=== PATIENT | male | born 1950 | race African-American/Black ===

== ENCOUNTER 2019-03-29 15:54 | Inpatient (IN) | payer MEDICARE ==
[~2019-03-29] VITALS: Ht 182.9 cm; Wt 71.0 kg
[2019-03-29 19:10] VITALS: BP 124/72
[2019-03-29] MEDS: DOCUSATE SODIUM 100 MG CAPSULE PO SCH (21:00)
[2019-03-29] MEDS ORDERED: QUEtiapine FUMARATE 25 MG TABLET PO SCH (21:00)
[2019-03-29] MEDS: SENNA 187 MG TABLET PO SCH (21:00)
[2019-03-29] MEDS: ATORVASTATIN CALCIUM 40 MG TABLET PO SCH (21:01)
[2019-03-29] MEDS: MONTELUKAST SODIUM 10 MG TABLET PO SCH (21:26)
[2019-03-29] MEDS: PARoxetine HCL 20 MG TABLET PO SCH (21:26)
[2019-03-29 23:17] VITALS: BP 132/57
[2019-03-30] MEDS ORDERED: DIPH25 PO (02:23)
[2019-03-30] MEDS ORDERED: TRAZ-257 PO (02:23)
[2019-03-30] MEDS ORDERED: PARO20TA24 PO (02:23)
[2019-03-30 06:34] LABS: BASOPHILS % (AUTO) 0.7 % (0.0-2.0); EOSINOPHILS % (AUTO) 5.6 % (1.0-6.0); HEMATOCRIT 47.5 % (41-53); HEMOGLOBIN 15.8 g/dL (13.5-17.5); LYMPHOCYTES # (AUTO) 1.2 K/uL (1.0-4.8); LYMPHOCYTES % (AUTO) 23.1 % (22.0-44.0); MEAN CORPUSCULAR HEMOGLOBIN 29.1 pg (26.0-34.0); MEAN CORPUSCULAR HGB CONC 33.4 G/dL (31.0-37.0); MEAN CORPUSCULAR VOLUME 87 fL (80-100); MONOCYTES # (AUTO) 0.5 K/uL (0.1-1.0); MONOCYTES % (AUTO) 9.2 % (2.0-9.0); NEUTROPHILS # (AUTO) 3.3 K/uL (1.8-7.7); NEUTROPHILS % (AUTO) 61.4 % (40.0-70.0); PLATELET COUNT (AUTO) 282 K/uL (150-450); RED BLOOD CELL COUNT(AUTO) 5.44 MIL/uL (4.50-5.90)
[2019-03-30 06:50] LABS: ALANINE AMINOTRANSFERASE 42 U/L (12-78); ALBUMIN 3.7 g/dL (3.4-5.0); ALKALINE PHOSPHATASE 56 U/L (46-116); ANION GAP 10 mmol/L (8-16); ASPARTATE AMINOTRANSFERASE 18 U/L (15-37); BILIRUBIN,TOTAL 0.5 mg/dL (0.1-1.0); CALCIUM, TOTAL 9.3 mg/dL (8.8-10.5); CARBON DIOXIDE 25 mmol/L (22-29); CHLORIDE 103 mmol/L (98-107); CREATININE 0.96 mg/dL (0.60-1.30); GLOMERULAR FILTR. RATE CALC > 60 mL/min (>60); GLUCOSE,RANDOM 102 mg/dL (70-110); SODIUM SERUM 138 mmol/L (136-145); TOTAL PROTEIN, SERUM 7.2 g/dL (6.4-8.2); UREA NITROGEN, BLOOD 19 mg/dL (7-18)
[2019-03-30 07:19] VITALS: BP 125/73
[2019-03-30] MEDS: AmLODIPine BESYLATE 10 MG TABLET PO SCH (08:09)
[2019-03-30] MEDS: LISINOPRIL 10 MG TABLET PO SCH (08:09)
[2019-03-30] MEDS: DOCUSATE SODIUM 100 MG CAPSULE PO SCH ×2 (08:09→20:04)
[2019-03-30] MEDS: CLOPIDOGREL BISULFATE 75 MG TABLET PO SCH (08:09)
[2019-03-30 16:04] VITALS: BP 116/68
[2019-03-30] MEDS: QUEtiapine FUMARATE 25 MG TABLET PO SCH (20:04)
[2019-03-30] MEDS: SENNA 187 MG TABLET PO SCH (20:04)
[2019-03-30] MEDS: ATORVASTATIN CALCIUM 40 MG TABLET PO SCH (20:04)
[2019-03-30] MEDS: MONTELUKAST SODIUM 10 MG TABLET PO SCH (20:04)
[2019-03-30] MEDS: PARoxetine HCL 20 MG TABLET PO SCH (20:04)
[2019-03-30] MEDS ORDERED: TraZODone HCL 100 MG TABLET PO SCH (21:00)
[2019-03-31 05:00] VITALS: BP 130/78
[2019-03-31] MEDS: PANTOPRAZOLE SODIUM 40 MG DR TABLET PO SCH (06:17)
[2019-03-31 07:15] VITALS: BP 113/65
[2019-03-31] MEDS: DOCUSATE SODIUM 100 MG CAPSULE PO SCH ×2 (09:07→20:00)
[2019-03-31] MEDS: CLOPIDOGREL BISULFATE 75 MG TABLET PO SCH (09:07)
[2019-03-31] MEDS: AmLODIPine BESYLATE 10 MG TABLET PO SCH (09:08)
[2019-03-31] MEDS: LISINOPRIL 10 MG TABLET PO SCH (09:08)
[2019-03-31 15:24] VITALS: BP 139/67
[2019-03-31] MEDS: TraMADol HCL 50 MG TABLET PO PRN (18:19)
[2019-03-31] MEDS: PARoxetine HCL 20 MG TABLET PO SCH (20:00)
[2019-03-31] MEDS: ATORVASTATIN CALCIUM 40 MG TABLET PO SCH (20:00)
[2019-03-31] MEDS: SENNA 187 MG TABLET PO SCH ×2 (20:01→20:20)
[2019-03-31] MEDS: MONTELUKAST SODIUM 10 MG TABLET PO SCH (20:01)
[2019-03-31] MEDS: QUEtiapine FUMARATE 25 MG TABLET PO SCH (20:01)
[2019-03-31] MEDS: DiphenhydrAMINE HCL 25 MG CAPSULE PO PRN (20:07)
[2019-03-31 23:23] VITALS: BP 137/68
[2019-04-01] MEDS: PANTOPRAZOLE SODIUM 40 MG DR TABLET PO SCH (06:22)
[2019-04-01 07:30] VITALS: BP 127/64
[2019-04-01] MEDS: AmLODIPine BESYLATE 10 MG TABLET PO SCH (08:43)
[2019-04-01] MEDS: DOCUSATE SODIUM 100 MG CAPSULE PO SCH ×2 (08:43→20:54)
[2019-04-01] MEDS: LISINOPRIL 10 MG TABLET PO SCH (08:44)
[2019-04-01] MEDS: CLOPIDOGREL BISULFATE 75 MG TABLET PO SCH (08:44)
[2019-04-01 15:30] VITALS: BP 124/67
[2019-04-01] MEDS: TraMADol HCL 50 MG TABLET PO PRN ×2 (15:30→22:17)
[2019-04-01] MEDS: PARoxetine HCL 20 MG TABLET PO SCH (20:54)
[2019-04-01] MEDS: SENNA 187 MG TABLET PO SCH (20:54)
[2019-04-01] MEDS: ATORVASTATIN CALCIUM 40 MG TABLET PO SCH (20:54)
[2019-04-01] MEDS: QUEtiapine FUMARATE 25 MG TABLET PO SCH (20:54)
[2019-04-01] MEDS: MONTELUKAST SODIUM 10 MG TABLET PO SCH (20:54)
[2019-04-01] MEDS: DiphenhydrAMINE HCL 25 MG CAPSULE PO PRN (21:09)
[2019-04-01] MEDS: DICLOFENAC SODIUM 1% 100 GM GEL [4GM] TP SCH (21:09)
[2019-04-01 23:17] VITALS: BP 134/89
[2019-04-02] MEDS: PANTOPRAZOLE SODIUM 40 MG DR TABLET PO SCH (05:28)
[2019-04-02] MEDS: TraMADol HCL 50 MG TABLET PO PRN ×3 (05:29→21:33)
[2019-04-02 07:15] VITALS: BP 131/63
[2019-04-02] MEDS: DICLOFENAC SODIUM 1% 100 GM GEL [4GM] TP SCH ×3 (08:54→20:46)
[2019-04-02] MEDS: DOCUSATE SODIUM 100 MG CAPSULE PO SCH ×2 (09:21→20:43)
[2019-04-02] MEDS: CLOPIDOGREL BISULFATE 75 MG TABLET PO SCH (09:21)
[2019-04-02] MEDS: AmLODIPine BESYLATE 10 MG TABLET PO SCH (09:21)
[2019-04-02] MEDS: LISINOPRIL 10 MG TABLET PO SCH (09:21)
[2019-04-02] MEDS: ENOXAPARIN SODIUM 40 MG/0.4 ML PF SYRINGE SQ SCH (11:50)
[2019-04-02 16:11] VITALS: BP 140/71
[2019-04-02] MEDS: GABAPENTIN 100 MG CAPSULE PO SCH ×2 (17:31→20:44)
[2019-04-02] MEDS: PARoxetine HCL 20 MG TABLET PO SCH (20:43)
[2019-04-02] MEDS: ATORVASTATIN CALCIUM 40 MG TABLET PO SCH (20:43)
[2019-04-02] MEDS: SENNA 187 MG TABLET PO SCH (20:43)
[2019-04-02] MEDS: MONTELUKAST SODIUM 10 MG TABLET PO SCH (20:44)
[2019-04-02] MEDS: QUEtiapine FUMARATE 25 MG TABLET PO SCH (20:44)
[2019-04-02] MEDS: DiphenhydrAMINE HCL 25 MG CAPSULE PO PRN (21:32)
[2019-04-03] VITALS: BP 140/79
[2019-04-03] MEDS: PANTOPRAZOLE SODIUM 40 MG DR TABLET PO SCH (06:33)
[2019-04-03 07:17] VITALS: BP 150/85
[2019-04-03] MEDS: DOCUSATE SODIUM 100 MG CAPSULE PO SCH (08:58)
[2019-04-03] MEDS: AmLODIPine BESYLATE 10 MG TABLET PO SCH (08:58)
[2019-04-03] MEDS: LISINOPRIL 10 MG TABLET PO SCH (08:58)
[2019-04-03] MEDS: DICLOFENAC SODIUM 1% 100 GM GEL [4GM] TP SCH ×3 (08:59→21:58)
[2019-04-03] MEDS: GABAPENTIN 100 MG CAPSULE PO SCH ×3 (08:59→21:57)
[2019-04-03] MEDS: CLOPIDOGREL BISULFATE 75 MG TABLET PO SCH (08:59)
[2019-04-03] MEDS: ENOXAPARIN SODIUM 40 MG/0.4 ML PF SYRINGE SQ SCH (08:59)
[2019-04-03 10:15] VITALS: BP 141/76
[2019-04-03 15:46] VITALS: BP 153/90
[2019-04-03] MEDS: TraMADol HCL 50 MG TABLET PO PRN (15:46)
[2019-04-03] MEDS: MONTELUKAST SODIUM 10 MG TABLET PO SCH (21:57)
[2019-04-03] MEDS: PARoxetine HCL 20 MG TABLET PO SCH (21:57)
[2019-04-03] MEDS: QUEtiapine FUMARATE 25 MG TABLET PO SCH (21:58)
[2019-04-03] MEDS: DOCUSATE SODIUM 250 MG CAPSULE PO SCH (21:58)
[2019-04-03] MEDS: ATORVASTATIN CALCIUM 40 MG TABLET PO SCH (21:58)
[2019-04-03] MEDS: SENNA 187 MG TABLET PO SCH (21:58)
[2019-04-03] MEDS: DiphenhydrAMINE HCL 25 MG CAPSULE PO PRN (22:05)
[2019-04-04 05:55] VITALS: BP 139/78
[2019-04-04] MEDS: PANTOPRAZOLE SODIUM 40 MG DR TABLET PO SCH ×2 (06:03→20:33)
[2019-04-04] MEDS: GABAPENTIN 100 MG CAPSULE PO SCH ×3 (09:00→20:33)
[2019-04-04 09:13] VITALS: BP 136/84
[2019-04-04] MEDS: ENOXAPARIN SODIUM 40 MG/0.4 ML PF SYRINGE SQ SCH (10:32)
[2019-04-04] MEDS: DICLOFENAC SODIUM 1% 100 GM GEL [4GM] TP SCH ×3 (10:32→20:33)
[2019-04-04] MEDS: DOCUSATE SODIUM 250 MG CAPSULE PO SCH ×2 (10:33→20:33)
[2019-04-04] MEDS: LISINOPRIL 10 MG TABLET PO SCH (10:33)
[2019-04-04] MEDS: AmLODIPine BESYLATE 10 MG TABLET PO SCH (10:33)
[2019-04-04] MEDS: CLOPIDOGREL BISULFATE 75 MG TABLET PO SCH (10:33)
[2019-04-04] MEDS: MAGNESIUM HYDROXIDE SUSPENSION 30 ML UDCUP PO PRN (12:05)
[2019-04-04 16:00] VITALS: BP 134/65
[2019-04-04] MEDS: TraMADol HCL 50 MG TABLET PO PRN (19:11)
[2019-04-04] MEDS: DiphenhydrAMINE HCL 25 MG CAPSULE PO PRN (20:32)
[2019-04-04] MEDS: SENNA 187 MG TABLET PO SCH (20:32)
[2019-04-04] MEDS: ATORVASTATIN CALCIUM 40 MG TABLET PO SCH (20:33)
[2019-04-04] MEDS: QUEtiapine FUMARATE 25 MG TABLET PO SCH (20:33)
[2019-04-04] MEDS: MONTELUKAST SODIUM 10 MG TABLET PO SCH (20:33)
[2019-04-04] MEDS: PARoxetine HCL 20 MG TABLET PO SCH (20:33)
[2019-04-04 23:28] VITALS: BP 138/72
[2019-04-05] MEDS ORDERED: SENN8.6T90 PO (04:50)
[2019-04-05] MEDS ORDERED: CLOP75TA3 PO (04:50)
[2019-04-05] MEDS ORDERED: LISI-661 PO (04:50)
[2019-04-05] MEDS ORDERED: PANT40TA25 PO (04:50)
[2019-04-05] MEDS ORDERED: DOCU-342 PO (04:50)
[2019-04-05] MEDS ORDERED: AMLO10TA7 PO (04:50)
[2019-04-05] MEDS ORDERED: ATOR40TA28 PO (04:50)
[2019-04-05] MEDS ORDERED: QUET25TA PO (04:50)
[2019-04-05] MEDS ORDERED: MONT10TA21 PO (04:50)
[2019-04-05] MEDS ORDERED: GABA-529 PO (04:50)
[2019-04-05] MEDS ORDERED: DICL2100G TP (04:50)
[2019-04-05] MEDS: PANTOPRAZOLE SODIUM 40 MG DR TABLET PO SCH (06:37)
[2019-04-05 08:50] VITALS: BP 136/85
[2019-04-05] MEDS: ENOXAPARIN SODIUM 40 MG/0.4 ML PF SYRINGE SQ SCH (08:53)
[2019-04-05] MEDS: CLOPIDOGREL BISULFATE 75 MG TABLET PO SCH (08:54)
[2019-04-05] MEDS: DICLOFENAC SODIUM 1% 100 GM GEL [4GM] TP SCH ×3 (08:54→20:22)
[2019-04-05] MEDS: DOCUSATE SODIUM 250 MG CAPSULE PO SCH ×2 (08:54→20:18)
[2019-04-05] MEDS: AmLODIPine BESYLATE 10 MG TABLET PO SCH (08:54)
[2019-04-05] MEDS: GABAPENTIN 100 MG CAPSULE PO SCH ×3 (08:54→20:17)
[2019-04-05] MEDS: LISINOPRIL 10 MG TABLET PO SCH (08:54)
[2019-04-05] MEDS: TraMADol HCL 50 MG TABLET PO PRN (09:46)
[2019-04-05] MEDS: MAGNESIUM HYDROXIDE SUSPENSION 30 ML UDCUP PO PRN (09:47)
[2019-04-05] MEDS: ACETAMINOPHEN 325 MG TABLET PO PRN (14:35)
[2019-04-05 15:30] VITALS: BP 149/84
[2019-04-05] MEDS: ATORVASTATIN CALCIUM 40 MG TABLET PO SCH (20:17)
[2019-04-05] MEDS: DiphenhydrAMINE HCL 25 MG CAPSULE PO PRN (20:17)
[2019-04-05] MEDS: PARoxetine HCL 20 MG TABLET PO SCH (20:17)
[2019-04-05] MEDS: MONTELUKAST SODIUM 10 MG TABLET PO SCH (20:17)
[2019-04-05] MEDS: QUEtiapine FUMARATE 25 MG TABLET PO SCH (20:17)
[2019-04-05] MEDS: SENNA 187 MG TABLET PO SCH (20:18)
[2019-04-05 23:36] VITALS: BP 141/63
[2019-04-06] MEDS: MAGNESIUM HYDROXIDE SUSPENSION 30 ML UDCUP PO PRN ×2 (06:20→08:59)
[2019-04-06] MEDS: PANTOPRAZOLE SODIUM 40 MG DR TABLET PO SCH (06:20)
[2019-04-06 08:30] VITALS: BP 114/61
[2019-04-06] MEDS: ENOXAPARIN SODIUM 40 MG/0.4 ML PF SYRINGE SQ SCH (08:57)
[2019-04-06] MEDS: DOCUSATE SODIUM 250 MG CAPSULE PO SCH ×2 (08:57→20:43)
[2019-04-06] MEDS: AmLODIPine BESYLATE 10 MG TABLET PO SCH (08:57)
[2019-04-06] MEDS: LISINOPRIL 10 MG TABLET PO SCH (08:57)
[2019-04-06] MEDS: CLOPIDOGREL BISULFATE 75 MG TABLET PO SCH (08:57)
[2019-04-06] MEDS: GABAPENTIN 100 MG CAPSULE PO SCH ×3 (08:57→20:42)
[2019-04-06] MEDS: DICLOFENAC SODIUM 1% 100 GM GEL [4GM] TP SCH ×3 (08:58→20:43)
[2019-04-06] MEDS: TraMADol HCL 50 MG TABLET PO PRN (09:29)
[2019-04-06] MEDS ORDERED: MAGNESIUM CITRATE 300 ML ORAL SOLUTION PO ONE (15:45)
[2019-04-06 15:56] VITALS: BP 134/97
[2019-04-06] MEDS: SENNA 187 MG TABLET PO SCH (20:42)
[2019-04-06] MEDS: DiphenhydrAMINE HCL 25 MG CAPSULE PO PRN (20:42)
[2019-04-06] MEDS: QUEtiapine FUMARATE 25 MG TABLET PO SCH (20:43)
[2019-04-06] MEDS: PARoxetine HCL 20 MG TABLET PO SCH (20:43)
[2019-04-06] MEDS: MONTELUKAST SODIUM 10 MG TABLET PO SCH (20:43)
[2019-04-06] MEDS: ATORVASTATIN CALCIUM 40 MG TABLET PO SCH (20:43)
[2019-04-06 23:25] VITALS: BP 113/58
[2019-04-07] MEDS: PANTOPRAZOLE SODIUM 40 MG DR TABLET PO SCH (06:28)
[2019-04-07 08:55] VITALS: BP 115/68
[2019-04-07] MEDS: DICLOFENAC SODIUM 1% 100 GM GEL [4GM] TP SCH ×3 (09:00→20:09)
[2019-04-07] MEDS: GABAPENTIN 100 MG CAPSULE PO SCH ×3 (09:23→20:08)
[2019-04-07] MEDS: AmLODIPine BESYLATE 10 MG TABLET PO SCH (09:23)
[2019-04-07] MEDS: LISINOPRIL 10 MG TABLET PO SCH (09:23)
[2019-04-07] MEDS: DOCUSATE SODIUM 250 MG CAPSULE PO SCH ×2 (09:23→20:08)
[2019-04-07] MEDS: CLOPIDOGREL BISULFATE 75 MG TABLET PO SCH (09:23)
[2019-04-07] MEDS: ENOXAPARIN SODIUM 40 MG/0.4 ML PF SYRINGE SQ SCH (09:23)
[2019-04-07 15:00] VITALS: BP 130/95
[2019-04-07] MEDS: TraMADol HCL 50 MG TABLET PO PRN (20:06)
[2019-04-07] MEDS: MONTELUKAST SODIUM 10 MG TABLET PO SCH (20:07)
[2019-04-07] MEDS: QUEtiapine FUMARATE 25 MG TABLET PO SCH (20:07)
[2019-04-07] MEDS: DiphenhydrAMINE HCL 25 MG CAPSULE PO PRN (20:07)
[2019-04-07] MEDS: SENNA 187 MG TABLET PO SCH (20:08)
[2019-04-07] MEDS: PARoxetine HCL 20 MG TABLET PO SCH (20:08)
[2019-04-07] MEDS: ATORVASTATIN CALCIUM 40 MG TABLET PO SCH (20:08)
[2019-04-07 23:00] VITALS: BP 116/61
[2019-04-08] MEDS: PANTOPRAZOLE SODIUM 40 MG DR TABLET PO SCH (06:17)
[2019-04-08 07:55] VITALS: BP 134/76
[2019-04-08] MEDS: DICLOFENAC SODIUM 1% 100 GM GEL [4GM] TP SCH ×3 (09:26→19:56)
[2019-04-08] MEDS: ENOXAPARIN SODIUM 40 MG/0.4 ML PF SYRINGE SQ SCH (09:26)
[2019-04-08] MEDS: AmLODIPine BESYLATE 10 MG TABLET PO SCH (09:27)
[2019-04-08] MEDS: GABAPENTIN 100 MG CAPSULE PO SCH ×3 (09:27→19:55)
[2019-04-08] MEDS: LISINOPRIL 10 MG TABLET PO SCH (09:27)
[2019-04-08] MEDS: CLOPIDOGREL BISULFATE 75 MG TABLET PO SCH (09:27)
[2019-04-08] MEDS: DOCUSATE SODIUM 250 MG CAPSULE PO SCH ×2 (09:27→19:56)
[2019-04-08] MEDS: ACETAMINOPHEN 325 MG TABLET PO PRN (12:14)
[2019-04-08 17:18] VITALS: BP 140/75
[2019-04-08] MEDS: QUEtiapine FUMARATE 25 MG TABLET PO SCH (19:55)
[2019-04-08] MEDS: SENNA 187 MG TABLET PO SCH (19:55)
[2019-04-08] MEDS: ATORVASTATIN CALCIUM 40 MG TABLET PO SCH (19:55)
[2019-04-08] MEDS: PARoxetine HCL 20 MG TABLET PO SCH (19:55)
[2019-04-08] MEDS: MONTELUKAST SODIUM 10 MG TABLET PO SCH (19:56)
[2019-04-08] MEDS: DiphenhydrAMINE HCL 25 MG CAPSULE PO PRN (19:56)
[2019-04-09] VITALS: BP 140/78
[2019-04-09] MEDS: PANTOPRAZOLE SODIUM 40 MG DR TABLET PO SCH (06:29)
[2019-04-09 08:30] VITALS: BP 114/67
[2019-04-09] MEDS: DICLOFENAC SODIUM 1% 100 GM GEL [4GM] TP SCH ×2 (09:31→16:00)
[2019-04-09] MEDS: ENOXAPARIN SODIUM 40 MG/0.4 ML PF SYRINGE SQ SCH (09:32)
[2019-04-09] MEDS: CLOPIDOGREL BISULFATE 75 MG TABLET PO SCH (09:33)
[2019-04-09] MEDS: AmLODIPine BESYLATE 10 MG TABLET PO SCH (09:33)
[2019-04-09] MEDS: GABAPENTIN 100 MG CAPSULE PO SCH ×2 (09:33→16:00)
[2019-04-09] MEDS: LISINOPRIL 10 MG TABLET PO SCH (09:33)
[2019-04-09] MEDS: DOCUSATE SODIUM 250 MG CAPSULE PO SCH (09:33)
== END 2019-04-09 17:00 | disposition left against medical advice (07) | DRG 56 ==
LOC: 2WR 19:10
PROVIDERS: ADMIT Physical Medicine & Rehabilitation; ATTEND Physical Medicine & Rehabilitation
DX: I69.354 Hemiplegia and hemiparesis following cerebral infarction affecting left non-dominant side (principal); I63.9 Cerebral infarction, unspecified; F32.2 Major depressive disorder, single episode, severe without psychotic features; E78.5 Hyperlipidemia, unspecified; F41.1 Generalized anxiety disorder; Z53.29 Procedure and treatment not carried out because of patient's decision for other reasons; M19.90 Unspecified osteoarthritis, unspecified site; J44.9 Chronic obstructive pulmonary disease, unspecified; K59.00 Constipation, unspecified; R51 Headache; I10 Essential (primary) hypertension; Z79.899 Other long term (current) drug therapy; Z90.79 Acquired absence of other genital organ(s); Z96.643 Presence of artificial hip joint, bilateral; Z87.891 Personal history of nicotine dependence; Z85.46 Personal history of malignant neoplasm of prostate; F10.21 Alcohol dependence, in remission; Z88.8 Allergy status to other drugs, medicaments and biological substances
CPT/HCPCS: 70450; 73502; 87081; 92507; 92508; 92523; 97110; 97112; 97116; 97150; 97163; 97166; 97530; 97535; 99366; J1650